=== PATIENT | female | born 1970 | race Hispanic/Latino ===

== ENCOUNTER 2016-11-25 15:59 | Inpatient (IN) | payer MEDICAID, OTHER ==
[2016-11-25 15:59] VITALS: BMI 25.0
--- NOTE | 2016-11-25 16:31 | C.PDOC ---
History Of Present Illness 46 y/o F c PMHx Depression p/w suicidal ideation. Denies specific plan. No prior suicide attempts. Denies hallucinations or homicidal ideation. No somatic complaints. Time Seen by Provider: 11/25/16 16:10 Chief Complaint (Nursing): Psychiatric Evaluation Past Medical History Vital Signs: Last Vital Signs Temp 97.8 F 11/25/16 16:02 Pulse 118 H 11/25/16 16:02 Resp 16 11/25/16 16:02 BP 135/84 11/25/16 16:02 Pulse Ox 100 11/25/16 16:53 - Medical History PMH: Anxiety, Arthritis, Back Problems, Depression, Fibromyalgia, HTN, Seizures Denies: Diabetes, Hepatitis, HIV, Chronic Kidney Disease, Sexually Transmitted Disease Surgical History: Appendectomy - [facility] Procedures CLOSURE SKIN & SUBCUTANEOUS NEC (09/21/13) LAPAROSCOP APPENDECTOMY (12/20/12) Family History: States: No Known Family Hx - Social History Hx Tobacco Use: No Hx Alcohol Use: Yes Hx Substance Use: No - Immunization History Hx Tetanus Toxoid Vaccination: Yes Hx Influenza Vaccination: No Hx Pneumococcal Vaccination: No Review Of Systems Except As Marked, All Systems Reviewed And Found Negative. Constitutional: Negative for: Fever Cardiovascular: Negative for: Chest Pain Physical Exam - Physical Exam Additional Physical Exam Comments: Constitutional: No acute distress. Head: Normocephalic. Atraumatic. Eyes: PERRL. ENT: Moist mucous membranes. Neck: Supple. Cardiovascular: Tachycardic rate. Radial pulses 2+ bilaterally. Chest: No tenderness. Respiratory: Clear to auscultation bilaterally. GI: Soft. Nontender. Nondistended. Back: No CVA tenderness. Musculoskeletal: No tenderness or swelling of extremities. Skin: No rash. Neurologic: Alert, no focal deficit. ED Course And Treatment - Laboratory Results Result Diagrams: 11/25/16 16:46 11/25/16 16:46 O2 Sat by Pulse Oximetry: 100 Medical Decision Making Medical Decision Making: Medically clear for psychiatric evaluation. Disposition - Disposition Disposition: HOSPITALIZED Disposition Time: 17:14 Condition: FAIR Forms: [employer] (Sinhala) - Clinical Impression Clinical Impression: Depression
[2016-11-25 16:49] LABS: BASO # 0.1 K/uL (0.0-0.2); BASO % 0.6 % (0.0-2.0); EOS # 0.4 K/uL (0.0-0.7); EOS % 3.4 % (0.0-4.0); HEMATOCRIT 34.4 % (34.0-47.0); LYMPH # 2.4 K/uL (1.0-4.3); MEAN CORPUSCULAR HEMOGLOBIN 29.7 pg (27.0-31.0); MEAN CORPUSCULAR HGB CONC 33.1 g/dL (33.0-37.0); MEAN PLATELET VOLUME 7.5 fL (7.2-11.7); RED CELL DISTRIBUTION WIDTH 13.2 % (11.5-14.5)
[2016-11-25 16:52] LABS: WHITE BLOOD COUNT 12.1 K/uL (4.8-10.8)
[2016-11-25 16:53] LABS: MEAN CELL VOLUME 89.9 fL (81.0-99.0)
[2016-11-25 16:58] LABS: RBC URINE 7 /hpf (0-3); URINE BILIRUBIN NEGATIVE (NEGATIVE); URINE BLOOD 1+ (NEGATIVE); URINE COLOR Yellow (YELLOW); URINE GLUCOSE (UA) NORMAL (Normal); URINE KETONE NEGATIVE (NEGATIVE); URINE LEUKOCYTE ESTERASE NEG Leu/uL (Negative); URINE PROTEIN NEGATIVE (NEGATIVE); URINE UROBILINOGEN NORMAL mg/dL (0.2-1.0); WBC URINE 1 /hpf (0-5)
[2016-11-25 17:02] LABS: CHLORIDE 98 mmol/L (98-107)
[2016-11-25 17:03] LABS: SODIUM 142 mmol/L (132-148)
[2016-11-25 17:05] LABS: BILIRUBIN,TOTAL 0.4 mg/dL (0.2-1.3); CARBON DIOXIDE 32 mmol/L (22-30); GFR AFRICAN-AMERICAN > 60
[2016-11-25 17:06] LABS: ALB/GLOB RATIO 1.2 (1.0-2.1); ALCOHOL SERUM < 10 mg/dl (0-10); ALKALINE PHOSPHATASE 48 U/L (38-126); ALT/SGPT 42 U/L (9-52); AST/SGOT 40 U/L (14-36); BLOOD UREA NITROGEN 10 mg/dL (7-17); CALCIUM 9.1 mg/dl (8.6-10.4); GLUCOSE,RANDOM 90 mg/dL (65-105); TOTAL PROTEIN 6.9 g/dL (6.3-8.3)
[2016-11-25 18:17] VITALS: O2SAT 99
--- NOTE | 2016-11-25 20:57 | PCM.BM ---
<Magnolia Gagnon - Last Filed: 11/25/16 20:55> Treatment Plan Problems - Problems identified on initial assessmt Depression Date Initiated: 11/25/16 Time Initiated: 20:56 Assessment reference: NA Status: Active Treatment assets and liabiliti Patient Assests: adapts well, cooperative, negotiates basic needs, cognitively intact Patient Liabilities: other (binge eating and divorce from ) - Milieu Protocol Maintain good personal hygiene: daily Encourage regular showers, daily Remind patient to perform daily oral care Conduct patient checks and document Observation sheet: Q15 minutes Maintain personal safety: every shift Educate patient to report safety concerns to staff, every shift Monitor environment for contraband/sharps Medication safety: Monitor for expected outcome, potential side effects: every shift, Assess barriers to learning: every shift, Assess readiness for medication education: every shift <Tho Bella - Last Filed: 11/28/16 18:54> - Diagnosis (1) Major depressive disorder, recurrent severe without psychotic features Status: Acute Interventions: 11/28/16 18:54 Prozac <Iliana Cortez - Last Filed: 11/29/16 11:25> Family Contact Family involvement: Family/SO is involved Family contact: Patient agrees to contact Family contact name: Dorothy Shepard Family contacted how many times per week?: 1 - Goals for Treatment Patient goals for treatment: "I want to an outpatient program." Discharge/Continuing Care - Education Needs Education Needs: Patient Medication, Patient Coping Skills - Discharge Discharge Criteria: Tolerates medication w/o severe side effects, Reduction of target symptoms Discharge to:: Home - Treatment Team Participation Discussed with Family/SO: Yes Was Patient/Family/SO present at Treatment Team Meeting: Yes
--- NOTE | 2016-11-26 17:15 | PCM.PSYCH ---
Initial Psychiatric Evaluation - Initial Psychiatric Evaluation Type of Admission: Voluntary Legal Status: Capacity Chief Complaint (in patient's own words): I was depressed and I need help History of Present Illness and Precipitating Events: Patient is a 46 years old, , unemployed, female, with history of major depressive disorder, chronic fatigue syndrome, eating disorder binge eating type and ADHD, noncompliant with treatment for last 2 weeks, was admitted due to depression and suicidal ideations. Patient reported feeling depressed, no change in sleep, increased appetite, gained about 30 pounds in 1 month. Hopelessness, helplessness and crying. Also reported having suicidal ideations at times, last had yesterday without any plan. Denied any homicidal ideations but history of 3 suicidal attempts when she was young the cutting on her arm. Denied any psychotic manic or anxiety symptoms. Patient has history of one previous admission in the beginning of 2017 at [facility]. Patient reported that she was taking Elavil 150 mg at bedtime, Xanax 1 mg 3 times a day and Adderall 20 mg twice a day. Patient does not want to continue with Xanax. Reported she attempted to stop Xanax in Last 1 month and had 3 seizures at 3 different times. Reported drinking alcohol socially. Last drink reported one beer 2 years ago. Denied using any other drugs including cocaine cannabis or heroin. Denied smoking cigarettes. Patient was born in [place], moved to [place] in 2005 with family. Patient is not working, is diverse first and has 3 children 27 years old, 25 years old and 15 years old all live with patient. Patient's daughter supports her. Her height is 5 feet 5 inches and weight is 200 pounds. Current Medications: Active Medications Generic Name Dose Route Start Last Admin Trade Name Freq PRN Reason Stop Dose Admin Bupropion HCl 75 mg 11/26/16 17:15 Wellbutrin PO DAILY MANUEL Ibuprofen 600 mg 11/25/16 19:03 Motrin Tab PO Q6 PRN Pain, moderate (4-7) Lorazepam 2 mg 11/25/16 19:15 11/26/16 15:43 Ativan PO 11/30/16 19:14 2 mg Q4 MANUEL Administration Taper Lorazepam 1 mg 11/25/16 19:03 11/25/16 19:20 Ativan PO 1 mg Q6 PRN Administration Anxiety Trazodone HCl 100 mg 11/25/16 19:03 11/25/16 21:10 Desyrel PO 100 mg HS PRN Administration Insomnia Past Psychiatric History - Past Psychiatric History Previous Treatment History: Inpatient At [facility] hospital: [facility] History of Abuse: None reported History of ETOH/Drug Use: See HPI History of Family Illness: Reported one of her paternal aunt has schizophrenia Pertinent Medical Hx (Current Medical&Sleep Prob, Allergies): Allergies Allergy/AdvReac Type Severity Reaction Status Date / Time diphenhydramine Allergy ITCHING Verified 11/25/16 21:47 [From Benadryl] ALPRAZolam [Xanax] 1 mg PO TID 11/25/16 Amitriptyline [Elavil] 150 mg PO DAILY 11/25/16 Dextroamphetamine/Amphetamine [Adderall 20 mg Tablet] 20 mg PO BID 11/25/16 History of seizures in last one month after patient attempted to stop Xanax Review of Systems - Psychiatric Psychiatric: Depression, Hopelessness Mental Status Examination - Personal Presentation Personal Presentation: Looks stated age - Affect Affect: Depressed - Motor Activity Motor Activity: Calm - Reliability in Providing Information Reliability in Providing Information: Fair - Speech Speech: Organized - Mood Mood: Depressed - Formal Thought Process Formal Thought Process: No Impairment - Hallucinations/Delusions Hallucinations: Other (None reported) Delusions: Other - Obsessions/Compulsions Obsessions: None Compulsions: None - Cognitive Functions Orientation: Person, Place, Situation, Time Sensorium: Alert Attention/Concentration: Attentive Abstract Thinking: [place] Estimate of Intelligence: Average Judgement: Intact, as evidence by: Insight regarding need for hospitalization Memory: Recent intact, as evidence by: 3/3 object recall, Remote intact, as evidenced by: Ability to recall historical events - Risk Risk: Diminished functioning - Strength & Assets Inventory Strength & Assets Inventory: Family support, Cooperative - Limitations Limitations: Other DSM 5 DX - DSM 5 DSM 5 Diagnosis: Major depressive disorder recurrent severe - Recommended/Plan of Treatment Treatment Recommendations and Plan of Treatment: Patient education Supportive therapy Will start Prozac Will continue Ativan taper for anxiolytics withdrawal symptoms Projected ELOS: 8-10 days - Smoking Cessation Smoking Cessation Initiated: No Reason for not providing: Patient doesn't smoke cigarettes
--- NOTE | 2016-11-27 16:31 | PCM.PYCHPN ---
Psychiatric Progress Note - Psychiatric Progress Note Patient seen today, length of contact: 15 minutes Patient Chief Complaint: I feel better but little tired. Problems Identified/Issues Discussed: Patient seen. Chart reviewed. Case discussed with the staff. Issues related to illness and treatment were discussed with the patient. Reported compliant with treatment with no adverse affects. Tolerating treatment well. Patient reported feeling better with the treatment but still feels little high. Education provided about the medications and treatment. At the time of evaluation, patient was awake alert oriented 3, had no delusions, no auditory or visual hallucinations, no suicidal ideations or homicidal ideations. Medical Problems: None reported Diagnostic Results: Reviewed DSM 5 Symptoms Update: Improving with treatment Medication Change: No Medical Record Reviewed: Yes Mental Status Examination - Cognitive Function Orientation: Person, Place, Situation, Time Memory: Intact Attention: WNL Concentration: WNL Association: WNL Fund of Knowledge: [facility] Decription of patient's judgement and insights: Fair - Mood Mood: Depressed (Less than before) - Affect Affect: Other (Appropriate) - Speech Speech: Appropriate - Formal Thought Process Formal Thought Process: No Impairment Psychotic Thoughts and Behaviors: None - Suicidal Ideation Suicidal Ideation: No - Homicidal Ideation Homicidal Ideation: No Goal/Treatment Plan - Goal/Treatment Plan Need for Continued Stay: Remain at risks for inpatient hospitalization, Discharge may exacerbated symptoms, Severe functional impairment Progress Toward Problem(s) and Goals/Treatment Plan: Patient education Supportive therapy Continue treatment as before Estimated Date of D/C: 12/02/16 - Smoking Cessation Smoking Cessation Initiated: No Reason for not providing: Patient doesn't smoke cigarettes
--- NOTE | 2016-11-28 18:57 | PCM.PYCHPN ---
Psychiatric Progress Note - Psychiatric Progress Note Patient seen today, length of contact: 15 minutes Patient Chief Complaint: I feel better but little tired. Problems Identified/Issues Discussed: Patient seen. Chart reviewed. Case discussed with the staff. Issues related to illness and treatment were discussed with the patient. Reported compliant with treatment with no adverse affects. Tolerating treatment well. Patient reported feeling better with the treatment but still feels little high. On a scale of 0- 1010 being the best, reported that 6. Education provided about the medications and treatment. At the time of evaluation, patient was awake alert oriented 3, had no delusions, no auditory or visual hallucinations, no suicidal ideations or homicidal ideations. Medical Problems: None reported Diagnostic Results: Reviewed DSM 5 Symptoms Update: Improving with treatment Medication Change: No Medical Record Reviewed: Yes Mental Status Examination - Cognitive Function Orientation: Person, Place, Situation, Time Memory: Intact Attention: WNL Concentration: WNL Association: [facility] Fund of Knowledge: [facility] Decription of patient's judgement and insights: Fair - Mood Mood: Depressed (Much Less than before) - Affect Affect: Other (Appropriate) - Speech Speech: Appropriate - Formal Thought Process Formal Thought Process: No Impairment Psychotic Thoughts and Behaviors: None - Suicidal Ideation Suicidal Ideation: No - Homicidal Ideation Homicidal Ideation: No Goal/Treatment Plan - Goal/Treatment Plan Need for Continued Stay: Remain at risks for inpatient hospitalization, Discharge may exacerbated symptoms, Severe functional impairment Progress Toward Problem(s) and Goals/Treatment Plan: Patient education Supportive therapy Continue treatment as before We will go to [facility] for follow-up care after discharge from the hospital Estimated Date of D/C: 12/02/16 - Smoking Cessation Smoking Cessation Initiated: No Reason for not providing: Patient doesn't smoke cigarettes
--- NOTE | 2016-11-29 14:55 | PCM.PYCHPN ---
Psychiatric Progress Note - Psychiatric Progress Note Patient seen today, length of contact: 15 minutes Patient Chief Complaint: I feel better. Problems Identified/Issues Discussed: Patient seen. Chart reviewed. Case discussed with the staff. Issues related to illness and treatment were discussed with the patient. Reported compliant with treatment with no adverse affects. Tolerating treatment well. Patient reported feeling better with the treatment. On a scale of 0-10, 10 being the best, reported at 6. Education provided about the medications and treatment. At the time of evaluation, patient was awake alert oriented 3, had no delusions, no auditory or visual hallucinations, no suicidal ideations or homicidal ideations. Medical Problems: None reported Diagnostic Results: Reviewed DSM 5 Symptoms Update: Improving with treatment Medication Change: No Medical Record Reviewed: Yes Mental Status Examination - Cognitive Function Orientation: Person, Place, Situation, Time Memory: Intact Attention: WNL Concentration: WNL Association: WNL Fund of Knowledge: [facility] Decription of patient's judgement and insights: Fair - Mood Mood: Depressed (Much less than before) - Affect Affect: Other (Appropriate) - Speech Speech: Appropriate - Formal Thought Process Formal Thought Process: No Impairment Psychotic Thoughts and Behaviors: None - Suicidal Ideation Suicidal Ideation: No - Homicidal Ideation Homicidal Ideation: No Goal/Treatment Plan - Goal/Treatment Plan Need for Continued Stay: Remain at risks for inpatient hospitalization, Discharge may exacerbated symptoms, Severe functional impairment Progress Toward Problem(s) and Goals/Treatment Plan: Patient education Supportive therapy Continue treatment as before Patient will go to [facility] for follow-up care after discharge from the hospital Estimated Date of D/C: 12/02/16 - Smoking Cessation Smoking Cessation Initiated: No Reason for not providing: Patient doesn't smoke cigarettes
--- NOTE | 2016-11-30 15:38 | PCM.PYCHPN ---
Psychiatric Progress Note - Psychiatric Progress Note Patient seen today, length of contact: 15 minutes Patient Chief Complaint: I feel better. Problems Identified/Issues Discussed: Patient seen. Chart reviewed. Case discussed with the staff. Issues related to illness and treatment were discussed with the patient. Reported compliant with treatment with no adverse affects. Tolerating treatment well. Patient reported feeling better with the treatment. On a scale of 0-10, 10 being the best, reported at 8. Education provided about the medications and treatment. At the time of evaluation, patient was awake alert oriented 3, had no delusions, no auditory or visual hallucinations, no suicidal ideations or homicidal ideations. Medical Problems: None reported Diagnostic Results: Reviewed DSM 5 Symptoms Update: Improving with treatment Medication Change: No Medical Record Reviewed: Yes Mental Status Examination - Cognitive Function Orientation: Person, Place, Situation, Time Memory: Intact Attention: WNL Concentration: WNL Association: WNL Fund of Knowledge: [facility] Decription of patient's judgement and insights: Fair - Mood Mood: Neutral - Affect Affect: Other (Appropriate) - Speech Speech: Appropriate - Formal Thought Process Formal Thought Process: No Impairment Psychotic Thoughts and Behaviors: None - Suicidal Ideation Suicidal Ideation: No - Homicidal Ideation Homicidal Ideation: No Goal/Treatment Plan - Goal/Treatment Plan Need for Continued Stay: Remain at risks for inpatient hospitalization, Discharge may exacerbated symptoms, Severe functional impairment Progress Toward Problem(s) and Goals/Treatment Plan: Patient education Supportive therapy Continue treatment as before Patient will go to [facility] for follow-up care after discharge from the hospital Estimated Date of D/C: 12/02/16 - Smoking Cessation Smoking Cessation Initiated: No Reason for not providing: Patient doesn't smoke cigarette
[2016-12-01 07:15] VITALS: PULSE 83; RESP 18; TEMP 98
[2016-12-01 10:38] VITALS: BP 110/73
--- NOTE | 2016-12-01 11:53 | PCM.PYCHDC ---
Mental Status Examination - Mental Status Examination Orientation: Person, Place, Situation, Time Memory: Intact Mood: Neutral Affect: Other (Appropriate) Speech: Appropriate Attention: WNL Concentration: WNL Association: WNL Fund of Knowledge: WNL Formal Thought Process: No Impairment Description of patient's judgement and insight: Fair Psychotic Thoughts and Behaviors: None Suicidal Ideation: No Current Homicidal Ideation?: No Discharge Summary - Discharge Note Reason for Hospitalization: Major depressive disorder recurrent severe without psychotic features Laboratory Data: Reviewed Consultations:: List each consultation separately and include: 1. Reason for request. 2. Findings. 3. Follow-up Summary of Hospital Course include:: 1. Description of specific treatment plan utilized for patients during their course of treatmen. 2. Summarize the time- course for resolution of acute symptoms and/or regressed behaviors. 3. Describe issues identified and worked on during hospitalization. 4. Describe medication utilized. 5. Describe medical problems identified and treated. 6. Reassessment of suicide risk Summary of Hospital Course: Patient is a 46 years old, , unemployed, female, with history of major depressive disorder, chronic fatigue syndrome, eating disorder binge eating type and ADHD, noncompliant with treatment for last 2 weeks, was admitted due to depression and suicidal ideations. Patient reported feeling depressed, no change in sleep, increased appetite, gained about 30 pounds in 1 month. Hopelessness, helplessness and crying. Also reported having suicidal ideations at times, last had yesterday without any plan. Denied any homicidal ideations but history of 3 suicidal attempts when she was young the cutting on her arm. Denied any psychotic manic or anxiety symptoms. Patient has history of one previous admission in the beginning of 2017 at [facility]. Patient reported that she was taking Elavil 150 mg at bedtime, Xanax 1 mg 3 times a day and Adderall 20 mg twice a day. Patient does not want to continue with Xanax. Reported she attempted to stop Xanax in Last 1 month and had 3 seizures at 3 different times. Reported drinking alcohol socially. Last drink reported one beer 2 years ago. Denied using any other drugs including cocaine cannabis or heroin. Denied smoking cigarettes. Patient was born in [place], moved to [place] in [place] with family. Patient is not working, is diverse first and has 3 children 27 years old, 25 years old and 15 years old all live with patient. Patient's daughter supports her. Her height is 5 feet 5 inches and weight is 200 pounds. During her stay on the hospital patient was started on and other when necessary medications. Patient started feeling better with this medication and with treatment. Patient was attending groups. With the above treatment patient was stable and today patient was ready for discharge. At the time of evaluation and discharge, patient was awake alert oriented 3, had no delusion, no auditory or visual hallucination, no suicidal ideations or homicidal ideations. Patient was discharged in a stable condition. - Diagnosis (1) Major depressive disorder, recurrent severe without psychotic features Current Visit: Yes Status: Acute - Final Diagnosis (DSM 5) Condition upon Discharge: FAIR Disposition: HOME/ ROUTINE Follow-up Treatment Plan: Patient will go to [facility] for follow-up care after discharge from the hospital Prescriptions/Medication Reconciliation: FLUoxetine [Prozac] 10 mg PO DAILY #30 cap traZODone [Desyrel] 200 mg PO DAILY #60 tab - Smoking Cessation Smoking Cessation Medication prescribed: No Reason for not providing: Patient doesn't smoke cigarette - Antipsychotic Medications Pt discharged on 2 or more routine antipsychotic medications: No
== END 2016-12-01 11:35 | disposition home or self-care (01) | DRG 430 ==
LOC: C.ER 15:59 → C.5E 17:54
PROC: HZ59ZZZ Individual Psychotherapy for Substance Abuse Treatment, Supportive (ICD-10-PCS; principal; 2016-11-25)
PROC: GZHZZZZ Group Psychotherapy (ICD-10-PCS; 2016-11-25)
DX: F33.2 Major depressive disorder, recurrent severe without psychotic features (principal); F13.230 Sedative, hypnotic or anxiolytic dependence with withdrawal, uncomplicated; R45.851 Suicidal ideations; F50.81 Binge eating disorder; F90.9 Attention-deficit hyperactivity disorder, unspecified type; F41.9 Anxiety disorder, unspecified; R53.82 Chronic fatigue, unspecified